=== PATIENT | male | born 1965 | race African-American/Black ===

== ENCOUNTER 2022-08-04 12:37 | Emergency (ER) | payer OTHER ==
[~2022-08-04] VITALS: Ht 188 cm; Wt 11.6 kg
[2022-08-04] MEDS ORDERED: AMLO10TA55 PO (12:44)
[2022-08-04] MEDS ORDERED: METO50 PO (12:44)
[2022-08-04 14:52] LABS: BASOPHILS % (AUTO) 0.8 % (0.0-2.0); EOSINOPHILS % (AUTO) 3.7 % (1.0-6.0); HEMATOCRIT 42.8 % (41-53); LYMPHOCYTES # (AUTO) 1.9 K/uL (1.0-4.8); LYMPHOCYTES % (AUTO) 33.4 % (22.0-44.0); MEAN CORPUSCULAR HEMOGLOBIN 27.7 pg (26.0-34.0); MEAN CORPUSCULAR HGB CONC 32.8 G/dL (31.0-37.0); MEAN CORPUSCULAR VOLUME 85 fL (80-100); MONOCYTES # (AUTO) 0.4 K/uL (0.1-1.0); MONOCYTES % (AUTO) 7.8 % (2.0-9.0); NEUTROPHILS # (AUTO) 3.1 K/uL (1.8-7.7); NEUTROPHILS % (AUTO) 54.3 % (40.0-70.0); PLATELET COUNT (AUTO) 210 K/uL (150-450); RED BLOOD CELL COUNT(AUTO) 5.05 MIL/uL (4.50-5.90); RED CELL DISTRIBUTION WIDTH 13.3 % (11.5-14.5)
[2022-08-04 15:00] LABS: ALANINE AMINOTRANSFERASE 8 U/L (12-78); ALBUMIN 4.2 g/dL (3.4-5.0); ALKALINE PHOSPHATASE 74 U/L (46-116); ANION GAP 5 mmol/L (8-16); ASPARTATE AMINOTRANSFERASE 14 U/L (15-37); BILIRUBIN,TOTAL 0.4 mg/dL (0.1-1.0); CALCIUM, TOTAL 9.5 mg/dL (8.8-10.5); CARBON DIOXIDE 29 mmol/L (22-29); CHLORIDE 103 mmol/L (98-107); CREATININE 1.16 mg/dL (0.60-1.30); GLUCOSE,RANDOM 96 mg/dL (70-110); POTASSIUM 4.1 mmol/L (3.5-5.1); SODIUM SERUM 137 mmol/L (136-145); TOTAL PROTEIN, SERUM 8.2 g/dL (6.4-8.2); UREA NITROGEN, BLOOD 16 mg/dL (7-18)
[2022-08-04 15:02] LABS: PROTHROMBIN TIME 10.6 SEC (9.4-11.6)
[2022-08-04 15:05] LABS: GLOMERULAR FILTR. RATE CALC > 60 mL/min (>60)
[2022-08-04 15:30] VITALS: BP 135/96
== END 2022-08-04 15:42 | disposition home or self-care (01) ==
LOC: EMS 12:41
DX: L98.499 Non-pressure chronic ulcer of skin of other sites with unspecified severity (principal); I10 Essential (primary) hypertension
CPT/HCPCS: 80053; 85025; 85610; 85730; 99283

== ENCOUNTER 2024-06-05 11:38 | Emergency (ER) | payer SELFPAY ==
[~2024-06-05] VITALS: Ht 188 cm; Wt 127.3 kg
[~2024-06-05 11:38] MED LIST: AMLO10TA55 PO; METO50 PO
[2024-06-05] MEDS ORDERED: FURO40TA6 PO ×2 (11:41→12:59)
[2024-06-05] MEDS ORDERED: HYDR50TA36 PO ×2 (11:41→12:59)
[2024-06-05] MEDS ORDERED: ISOS60TA77 PO ×2 (11:41→12:59)
[2024-06-05 11:43] VITALS: TEMP 98.6
[2024-06-05] MEDS: FUROSEMIDE 20 MG TABLET PO ONE (12:52)
[2024-06-05] MEDS: ISOSORBIDE MONONITRATE 60 MG ER TABLET PO ONE (12:52)
[2024-06-05 13:00] VITALS: BP 159/84; PULSE 88; RESP 17; O2SAT 97
== END 2024-06-05 13:11 | disposition home or self-care (01) ==
LOC: EMS 11:38
DX: I10 Essential (primary) hypertension (principal)
CPT/HCPCS: 99283

== ENCOUNTER 2024-08-30 03:06 | Emergency (ER) | payer SELFPAY ==
[~2024-08-30] VITALS: Ht 190.5 cm; Wt 125.5 kg
[~2024-08-30 03:06] MED LIST changes: -AMLO10TA55 PO; +FURO40TA6 PO; +HYDR50TA36 PO; +ISOS60TA77 PO; -METO50 PO
[2024-08-30 03:13] VITALS: BP 155/70; PULSE 110; RESP 18; TEMP 97.6; O2SAT 99
== END 2024-08-30 04:23 | disposition left against medical advice (07) ==
LOC: EMS 03:07
DX: M79.662 Pain in left lower leg (principal); M79.661 Pain in right lower leg; Z53.21 Procedure and treatment not carried out due to patient leaving prior to being seen by health care provider
CPT/HCPCS: 93005